=== PATIENT | female | born 1960 | race Caucasian/White ===

== ENCOUNTER 2016-08-01 10:54 | Day surgery (SDC) | payer BC ==
[~2016-08-01 10:54] MED LIST: Lactated Ringers 1,000 ML IV SCH; Lidocaine 1%/Sod Bicarbonate in NS 8.4% 1 ML Syringe IV PRN; Lidocaine 1%/Sod Bicarbonate in NS 8.4% 1 ML Syringe PRN; Sodium Chloride 0.9% 10 ML Syringe FLUSH PRN
[2016-08-01] MEDS ORDERED: Lidocaine 1% 4 ML ONE (10:56)
[2016-08-01] MEDS ORDERED: Propofol 200 MG/20 ML SDV ONE (10:56)
[2016-08-01] MEDS ORDERED: fentaNYL 100 MCG/2 ML SDV ONE (10:56)
[2016-08-01] MEDS ORDERED: Midazolam 1 MG/ML 2 ML SDV ONE (10:57)
--- NOTE | 2016-08-01 11:43 | PCM.PREANE ---
Preanesthetic Assessment - Anesthesia/Transfusion/Family Hx Anesthesia History: Prior Anesthesia Without Reaction Family History of Anesthesia Reaction: No Transfusion History: No Prior Transfusion(s) - Review of Systems General: No Symptoms Pulmonary: No Symptoms Cardiovascular: No Symptoms Gastrointestinal: No symptoms Neurological: No Symptoms Other: Reports: None - Physical Assessment NPO Status Date: 07/31/16 NPO Status Time: 00:00 Pulse: 70 O2 Sat by Pulse Oximetry: 96 Respiratory Rate: 16 Blood Pressure: 125/87 Temperature: 36.4 C Height: 1.63 m Weight: 58.967 kg ASA Class: 2 Mental Status: Alert & Oriented x3 Airway Class: Mallampati = 1 Dentition: Reports: Normal Dentition, Pyatt(s) Thyro-Mental Finger Breadths: 3 Mouth Opening Finger Breadths: 3 ROM/Head Extension: Full Lungs: Clear to auscultation, Normal respiratory effort Cardiovascular: Regular Rate, Regular Rhythm, No Murmurs - Allergies Allergies/Adverse Reactions: Allergies Allergy/AdvReac Type Severity Reaction Status Date / Time latex Allergy Rash Verified 07/31/16 14:29 - Blood Blood Available: No Product(s) Available: None - Anesthesia Plan Pre-Op Medication Ordered: Other (.5 mg ativan) - Acknowledgements Anesthesia Type Planned: MAC Pt an Appropriate Candidate for the Planned Anesthesia: Yes Alternatives and Risks of Anesthesia Discussed w Pt/Guardian: Yes Pt/Guardian Understands and Agrees with Anesthesia Plan: Yes PreAnesthesia Questionnaire HEENT History: Reports: Impaired vision Cardiovascular History: Reports: Hypertension, [place] Respiratory History: Reports: None Gastrointestinal History: Reports: Hemorrhoids Genitourinary History: Reports: Renal calculus [employer] History: Reports: None Musculoskeletal History: Reports: None Neurological History: Reports: None Psychiatric History: Reports: None Endocrine/Metabolic History: Reports: None Hematologic History: Reports: Anemia Immunologic History: Reports: None Oncologic (Cancer) History: Reports: None Dermatologic History: Reports: None - Past Surgical History Head Surgeries/Procedures: Reports: None HEENT Surgical History: Reports: Tonsillectomy Cardiovascular Surgical History: Reports: Other (see below) Other Cardiovascular Surgeries/Procedures: NSTEMI Female Surgical History: Reports: Hysterectomy - SUBSTANCE USE Smoking Status *Q: Former Smoker Tobacco Use Within Last Twelve Months: Cigarettes Recreational Drug Use History: No - HOME MEDS Home Medications: Home Meds Aspirin [Aspirin] 81 mg PO DAILY 04/11/17 [History] Fluticasone Propionate [Fluticasone Propionate] 1 spray NASBOTH DAILY 07/31/16 [ History] Metoprolol Succinate [Toprol Xl] 25 mg PO DAILY 07/31/16 [History] Nitroglycerin [IJP: Nitroglycerin] 1 tab SL ASDIRECTED PRN 07/31/16 [History] atorvaSTATin Calcium [Atorvastatin Calcium] 10 mg PO DAILY 07/31/16 [History] - CURRENT (IN HOUSE) MEDS Current Meds: Current Medications Lactated Ringer's (Ringers, Lactated) 1,000 mls @ 125 mls/hr IV ASDIRECTED ESTIVEN Stop: 08/01/16 23:00 Lidocaine/Sodium Bicarbonate (Buffered Lidocaine 1% In Ns 8.4%) 0.25 ml IV ONETIME PRN PRN Reason: Prior to IV Start Stop: 08/01/16 18:00 Lorazepam (Ativan) 0.5 mg IVPUSH ONETIME ONE Stop: 08/01/16 11:35 Sodium Chloride (Saline Flush) 10 ml FLUSH ASDIRECTED PRN PRN Reason: Keep Vein Open Stop: 08/01/16 18:00 Discontinued Medications Fentanyl (Sublimaze) Confirm Administered Dose 100 mcg .ROUTE .STK-MED ONE Stop: 08/01/16 10:57 Lactated Ringer's (Ringers, Lactated) 1,000 mls @ 125 mls/hr IV ASDIRECTED ESTIVEN Stop: 07/31/16 23:00 Lidocaine HCl (Xylocaine-Mpf 1%) Confirm Administered Dose 4 mls @ as directed .ROUTE .STK-MED ONE Stop: 08/01/16 10:57 Lidocaine/Sodium Bicarbonate (Buffered Lidocaine 1% In Ns 8.4%) 0.25 ml .XX ONETIME PRN PRN Reason: Prior to IV Start Stop: 07/31/16 18:00 Midazolam HCl (Versed 1 Mg/Ml) Confirm Administered Dose 2 mg .ROUTE .STK-MED ONE Stop: 08/01/16 10:58 Propofol (Diprivan 20 Ml) Confirm Administered Dose 200 mg .ROUTE .STK-MED ONE Stop: 08/01/16 10:57 Sodium Chloride (Saline Flush) 10 ml FLUSH ASDIRECTED PRN PRN Reason: Keep Vein Open Stop: 07/31/16 18:00
[2016-08-01] MEDS ORDERED: LORazepam 2 MG/ML MDV IVPUSH ONE (12:30)
--- NOTE | 2016-08-01 13:05 | PCM.OPNOTE ---
- General Post-Op/Procedure Note Date of Surgery/Procedure: 08/01/16 Operative Procedure(s): Diagnostic colonoscopy with hot snare polypectomy and clip placement Pre Op Diagnosis: Family history of colon cancer (father and grandfather), rectal bleeding, change in bowel habits Post-Op Diagnosis: Colon polyps, diverticulosis Anesthesia Technique: MAC Primary Surgeon: Taylor Steiner Anesthesia Provider: Oly Robles Pathology: 1. Sigmoid colon polyp 2. Rectal polyp Fluid Replacement, Intraop: 800 (mL crystalloid ) EBL in mLs: 2 Complications: None Condition: Good Free Text/Narrative:: INDICATION FOR PROCEDURE: The patient is a 55-year-old woman who was referred to me by Dr. Reva Betancourt for evaluation for family history of colon cancer ( father and grandfather), rectal bleeding, change in bowel habits. No prior colonoscopy. Performing a diagnostic colonoscopy and the associated risks of the procedure had been discussed with the patient. The patient found these risks acceptable and agreed to proceed. DESCRIPTION OF PROCEDURE: The patient was taken to the operating room and placed in left lateral decubitus position. After induction of adequate sedation , a digital rectal exam was performed which showed some lichen planus around the anus and perineum. She does not have a history of this diagnosis. An adult Olympus colonoscope was inserted into the rectum and guided under direct visualization to the appendiceal orifice and ileocecal valve. Counter pressure was utilized to facilitate passage of the scope. The scope was then slowly withdrawn through the colon. The quality of the prep was excellent. There was no evidence of angiodysplasias. Mild diverticulosis of the sigmoid colon was noted. There was a small sigmoid polyp which was removed using hot snare, however the cautery did not function correctly and there was a small amount of bleeding after the polyp was removed and retrieved. A clip was deployed in this area for complete hemostasis. An additional small polyp was noted in the rectum. This was removed in its entirety using hot snare and retrieved. The scope was withdrawn into the rectum and retroflexed. There was no significant prominence of the patient's internal hemorrhoids. The scope was straightened, the colon was desufflated, and the scope was withdrawn. The patient was awakened from sedation and transferred to the recovery room in stable condition having tolerated the procedure well. POSTOPERATIVE PLAN: I discussed with the patient my intraoperative findings and recommendations. We will send a letter to the patient regarding her pathology and when her next colonoscopy should be performed. She should also see gynecology regarding her lichen planus. A referral was placed.
--- NOTE | 2016-08-01 13:42 | PCM48HPAN ---
Post Anesthesia Note - EVALUATION WITHIN 48HRS OF ANESTHETIC Vital Signs in Normal Range: Yes Patient Participated in Evaluation: Yes Respiratory Function Stable: Yes Airway Patent: Yes Cardiovascular Function Stable: Yes Hydration Status Stable: Yes Pain Control Satisfactory: Yes Nausea and Vomiting Control Satisfactory: Yes Mental Status Recovered: Yes
[2016-08-01 13:43] VITALS: BP 140/85
== END 2016-08-01 14:45 | disposition home or self-care (01) ==
LOC: JD.SDS 10:54
PROVIDERS: ATTEND Surgery
DX: D12.5 Benign neoplasm of sigmoid colon (principal); K62.1 Rectal polyp; K57.30 Diverticulosis of large intestine without perforation or abscess without bleeding; D64.9 Anemia, unspecified; Z90.710 Acquired absence of both cervix and uterus; Z98.890 Other specified postprocedural states; Z79.82 Long term (current) use of aspirin; Z79.899 Other long term (current) drug therapy; Z87.891 Personal history of nicotine dependence
CPT/HCPCS: 45385; 88305; J2060; J2250; J3010; J7120; 00810; J2704